=== PATIENT | female | born 1955 | race Caucasian/White ===

== ENCOUNTER 2016-09-02 13:51 | Outpatient (RCR) | payer BC | END 2016-09-16 10:20 | disposition home or self-care (01) | LOC: PT 13:51 | DX: M54.10 Radiculopathy, site unspecified (principal) ==

== ENCOUNTER → 2019-11-14 | Outpatient (CLI) | payer MEDICARE, BC ==
[2019-11-14 08:44] LABS: HEMATOCRIT 43.7 % (37.0-47.0); HEMOGLOBIN 13.7 g/dL (12.5-16.0); LYMPH# 1.6 (1.50-4.00); MEAN CELL VOLUME 97 fl (78-100); MEAN CORPUSCULAR HEMOGLOBIN 31 pg (27-31); MEAN CORPUSCULAR HGB CONC 31 g/dL (33-37); MEAN PLATELET VOLUME 9.9 fl (7.4-10.4); MONO # 0.4 (0.20-0.80); NEU # 3.8 (1.40-6.50); PLATELET COUNT 199 K/mm3 (130-400); RED BLOOD COUNT 4.49 M/mm3 (4.10-5.30); RED CELL DISTRIBUTION WIDTH 13.5 % (11.5-14.5); WHITE BLOOD COUNT 5.8 K/mm3 (4.8-10.8)
[2019-11-14 08:49] LABS: ALBUMIN 4.3 g/dL (3.4-4.8); POTASSIUM 4.7 mmol/L (3.5-5.1)
[2019-11-14 08:50] LABS: CALCIUM 9.9 mg/dL (8.3-10.5)
[2019-11-14 08:52] LABS: TOTAL PROTEIN 7.1 g/dL (6.2-8.1)
[2019-11-14 08:53] LABS: TOTAL BILIRUBIN 0.8 mg/dL (0.2-1.2)
[2019-11-14 09:01] LABS: URINE APPEARANCE CLEAR; URINE BILIRUBIN NEGATIVE (NEGATIVE); URINE BLOOD NEGATIVE (NEGATIVE); URINE COLOR YELLOW; URINE GLUCOSE NEGATIVE (NEGATIVE); URINE KETONE NEGATIVE (NEGATIVE); URINE LEUKOCYTE ESTERASE NEGATIVE (NEGATIVE); URINE NITRATE NEGATIVE (NEGATIVE); URINE PROTEIN(semi-quant) NEGATIVE (NEGATIVE); URINE UROBILINOGEN NORMAL (NORMAL)
== END ==
LOC: LAB 08:14
PROVIDERS: Internal Medicine
DX: E78.5 Hyperlipidemia, unspecified (principal); R63.4 Abnormal weight loss

== ENCOUNTER → 2019-11-20 | Outpatient (CLI) | payer MEDICARE, BC | LOC: RAD 09:30 | DX: R63.4 Abnormal weight loss (principal) | CPT/HCPCS: Q9967 ==

== ENCOUNTER → 2023-04-27 | Outpatient (CLI) | payer MEDICARE, BC ==
[~2023-04-27] VITALS: Ht 165.1 cm; Wt 65.5 kg
[~2023-04-27] MED LIST: LIPITOR 10M10 MG/TAB PO; LUTEIN6 M1 PO; MIRTAZAPINE7.5 M1 PO; NATURE'S BLEND500 M5 PO; VITAMIN E45 MG PO
[2023-04-27 10:32] VITALS: BP 155/82
[2023-04-27 10:59] VITALS: BP 135/77
== END ==
LOC: AMSURD 09:57
DX: M81.0 Age-related osteoporosis without current pathological fracture (principal)
CPT/HCPCS: J3489

== ENCOUNTER → 2024-05-05 | Outpatient (CLI) | payer MEDICARE, BC ==
[~2024-05-05] VITALS: Ht 165.1 cm; Wt 70.0 kg
[~2024-05-05] MED LIST changes: +Zoledronic Acid 100 ML IV ONE
[2024-05-05 10:10] VITALS: BP 142/75
[2024-05-05 10:58] VITALS: BP 130/65
== END ==
LOC: AMSURD 04-26 13:26
DX: M81.0 Age-related osteoporosis without current pathological fracture (principal)
CPT/HCPCS: J3489